=== PATIENT | male | born 1980 | race Caucasian/White ===

== ENCOUNTER 2016-05-30 03:10 | Emergency (ER) | payer OTHER ==
[~2016-05-30] VITALS: Ht 170.2 cm; Wt 63.5 kg
--- NOTE | 2016-05-30 03:17 | ED HEAD/FACIAL INJ COMPLAINT ---
History of Present Illness General Chief Complaint: Fall Stated Complaint: "BIBA PER EMS FALL" Source: patient Exam Limitations: no limitations Vital Signs & Intake/Output Vital Signs & Intake/Output Vital Signs Date Time Temp Pulse Resp B/P Pulse O2 O2 Flow FiO2 Ox Delivery Rate 05/30 0317 97.1 97 18 124/83 97 Room Air Reconcile Medications Ibuprofen 800 MG TABLET 1 TAB PO TID PRN PAIN Ondansetron (Zofran Odt) 4 MG TAB.RAPDIS 1 TAB SL TID PRN NAUSEA Triage Nurses Notes Reviewed? yes Onset: Abrupt Severity: moderate Location: frontal Method of Injury: fall Loss of Consciousness: no loss of consciousness Associated Symptoms: head ache HPI: 35 yo gentleman presents after a fall. He states that he simply tripped over, fell, and landed on his head a few moments ago. He denies LOC. He notes a mild headache and ongoing dizziness with mild nausea. He denies palpitations, syncopal symptoms, chest pain, shortness of breath. He is otherwise well. Past History Travel History Traveled to [place] past 21 day No Medical History Any Pertinent Medical History? see below for history Surgical History Surgical History: none Family History Hx Contributory? No Review of Systems Review of Systems Constitutional: Reports: no symptoms. EENTM: Reports: no symptoms. Respiratory: Reports: no symptoms. Cardiovascular: Reports: no symptoms. GI: Reports: no symptoms. Genitourinary: Reports: no symptoms. Musculoskeletal: Reports: no symptoms. Skin: Reports: no symptoms. Neurological/Psychological: Reports: no symptoms. Hematologic/Endocrine: Reports: no symptoms. Immunologic/Allergic: Reports: no symptoms. All Other Systems: Reviewed and Negative Physical Exam Physical Exam General Appearance: well developed/nourished, mild distress Head: ecchymosis and swelling at forehead. Eyes: Bilateral: PERRL, EOMI. Ears, Nose, Throat: normal pharynx, normal ENT inspection, hearing grossly normal Neck: normal inspection, supple Respiratory: normal breath sounds Cardiovascular: regular rate/rhythm Gastrointestinal: soft, non-tender Back: normal inspection Extremities: normal inspection, normal range of motion, no edema Psychiatric: awake, alert, oriented x 3 Cranial Nerves: normal hearing, normal speech, PERRL Coordination/Gait: normal finger to nose, normal gait Motor/Sensory: no motor/sensory deficits Reflexes: 1+: bicep (R), bicep (L). Skin: intact, normal color, warm/dry Lymphatic: no anterior cervical rosemarie Progress Differential Diagnosis: ICH, skull fracture Plan of Care: Orders Procedure Date/time Status CT HEAD WO IV CONTRAST 05/[address] CERV SPINE WO IV CONTRAST 05/30 314 Active Diagnostic Imaging: Viewed by Me: CT Scan. Discussed w/RAD: CT Scan. Radiology Impression: head ct/cervical ct... benign... notable for congenital fusion... no acute dz... full report below. Comments: PATIENT: MINERVA SUAZO PRESENT AGE: 35 PATIENT ACCOUNT NO: [id number] : 81 LOCATION: [facility] [place] ORDERING PHYSICIAN: ARSLAN BANKS MD SERVICE DATE: 05/30/16 EXAM TYPE: CAT - CT CERV SPINE WO IV CONTRAST; CT HEAD WO IV CONTRAST EXAMINATION: CT OF THE HEAD WITHOUT CONTRAST CT OF THE CERVICAL SPINE WITHOUT CONTRAST CLINICAL INFORMATION: Fall. Trauma. COMPARISON: None. TECHNIQUE: Contiguous axial imaging of the head was performed without the administration of IV contrast. Axial multidetector volumetric images were also performed through the cervical spine without contrast. Multiplanar reconstructed images in coronal and sagittal orientations were submitted. DOSE: 600.7 and 370.5 mGy-cm FINDINGS: HEAD: Evaluation of the inferior frontal lobes, temporal lobes, and cerebellum is slightly limited by motion artifact. There is no evidence of acute intracranial hemorrhage or territorial infarction. No abnormal mass-effect or midline shift. No extra-axial fluid collections. Phelan to white matter differentiation is well preserved. The ventricles are normal in size and configuration. There is no abnormal attenuation within the brain parenchyma. The soft tissues and osseous structures are normal. Mild mucosal thickening is present within the right maxillary sinus and within the right frontal ethmoidal recess. Paranasal sinuses are otherwise clear. Mastoid air cells are clear. CERVICAL SPINE: No acute fracture or malalignment. There is developmental fusion of the C6 and C7 vertebral bodies and facet joints. Vertebral body heights are otherwise normal. Paraspinal soft tissues are unremarkable. No acute soft tissue edema. There is mild to moderate degenerative disc disease at C5-C6, just above the congenital fusion deformity. More mild degenerative disease is present at C3-C4 and C4-C5. Uncovertebral osteophytes produce neural foraminal encroachment at C5-C6 bilaterally. There is a posterior disc edge of a complex at C5-C6 that results in mild central narrowing. Thyroid gland is unremarkable. Lung apices are clear. IMPRESSION: 1. No acute intracranial pathology. 2. No acute fracture or malalignment within cervical spine. 3. 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 <Electronically signed in Other Vendor System> SIGNED BY: JOSE RIVERA MD 05/30/16 0412 Departure Departure Disposition: HOME OR SELF CARE Condition: Stable Clinical Impression Primary Impression: Fall Secondary Impressions: Concussion, Head injury Departure Forms: Customer Survey General Discharge Information Prescriptions: Current Visit Scripts Ondansetron (Zofran Odt) 1 TAB SL TID PRN NAUSEA #10 TAB Ibuprofen 1 TAB PO TID PRN PAIN #30 TAB Comments pt with negative head/cervical ct for acute bleed... he is otherwise well, but still reports mild throbbing headache... pt safe for discharge. He will follow up with his neurologist. He is otherwise well.
--- NOTE | 2016-05-30 04:12 | CT SCAN REPORT ---
EXAMINATION: CT OF THE HEAD WITHOUT CONTRAST CT OF THE CERVICAL SPINE WITHOUT CONTRAST CLINICAL INFORMATION: Fall. Trauma. COMPARISON: None. TECHNIQUE: Contiguous axial imaging of the head was performed without the administration of IV contrast. Axial multidetector volumetric images were also performed through the cervical spine without contrast. Multiplanar reconstructed images in coronal and sagittal orientations were submitted. DOSE: 600.7 and 370.5 mGy-cm FINDINGS: HEAD: Evaluation of the inferior frontal lobes, temporal lobes, and cerebellum is slightly limited by motion artifact. There is no evidence of acute intracranial hemorrhage or territorial infarction. No abnormal mass-effect or midline shift. No extra-axial fluid collections. Phelan to white matter differentiation is well preserved. The ventricles are normal in size and configuration. There is no abnormal attenuation within the brain parenchyma. The soft tissues and osseous structures are normal. Mild mucosal thickening is present within the right maxillary sinus and within the right frontal ethmoidal recess. Paranasal sinuses are otherwise clear. Mastoid air cells are clear. CERVICAL SPINE: No acute fracture or malalignment. There is developmental fusion of the C6 and C7 vertebral bodies and facet joints. Vertebral body heights are otherwise normal. Paraspinal soft tissues are unremarkable. No acute soft tissue edema. There is mild to moderate degenerative disc disease at C5-C6, just above the congenital fusion deformity. More mild degenerative disease is present at C3-C4 and C4-C5. Uncovertebral osteophytes produce neural foraminal encroachment at C5-C6 bilaterally. There is a posterior disc edge of a complex at C5-C6 that results in mild central narrowing. Thyroid gland is unremarkable. Lung apices are clear. IMPRESSION: 1. No acute intracranial pathology. 2. No acute fracture or malalignment within cervical spine. 3. 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
[2016-05-30] MEDS ORDERED: ZOFRAN ODT4 M1 SL (04:29)
[2016-05-30] MEDS ORDERED: IBUPROFEN800 M1 PO (04:29)
[2016-05-30 04:46] VITALS: BP 156/76
== END 2016-05-30 04:47 ==
LOC: ERH 03:10
DX: S06.0X0A Concussion without loss of consciousness, initial encounter (principal); W01.0XXA Fall on same level from slipping, tripping and stumbling without subsequent striking against object, initial encounter
CPT/HCPCS: J3101